=== PATIENT | female | born 1940 | race Caucasian/White ===

== ENCOUNTER 2022-03-21 06:44 | Inpatient (IN) | payer MEDICARE, OTHER ==
[2022-03-21] VITALS (16 sets, daily range): BP systolic 116–173; BP diastolic 52–89
[~2022-03-21] VITALS: Ht 162.6 cm; Wt 62.9 kg
[2022-03-21] MEDS: normal saline 1,000 ML IV SCH ×2 (07:10→21:50)
[2022-03-21] MEDS ORDERED: diphenhydrAMINE 25mg capsule PO PRN (07:10)
[2022-03-21] MEDS ORDERED: ATOR20TA66 PO (07:25)
[2022-03-21] MEDS ORDERED: LISI10TA27 PO (07:25)
[2022-03-21] MEDS ORDERED: LIRA0.6P2 SQ (07:25)
[2022-03-21] MEDS ORDERED: INSU100I25 SQ (07:25)
[2022-03-21] MEDS ORDERED: ASPI-1071 PO (07:26)
[2022-03-21] MEDS ORDERED: PONA45TA2 PO (07:27)
[2022-03-21] MEDS ORDERED: LEVO100T PO (07:27)
[2022-03-21 08:23] LABS: BASOPHILS % (AUTO) 0.7 % (0-1); EOSINOPHILS # (AUTO) 0.1 X10'3 (0-0.9); EOSINOPHILS % (AUTO) 1.8 % (0-6); HEMATOCRIT 42.7 % (35.0-45.0); HEMOGLOBIN 14.1 g/dl (12.0-16.0); LYMPHOCYTES % (AUTO) 15.3 % (21-51); MEAN CORPUSCULAR HEMOGLOBIN 29.6 PG (27.0-31.0); MEAN CORPUSCULAR HGB CONC 33.1 g/dL (33.0-36.5); MEAN CORPUSCULAR VOLUME 89.3 FL (78-98); MEAN PLATELET VOLUME 6.7 FL (7.4-10.4); MONOCYTES # (AUTO) 0.6 X10'3 (0-0.9); MONOCYTES % (AUTO) 8.3 % (2-12); NEUTROPHILS % (AUTO) 73.9 % (42-75); PLATELET COUNT 287 X10'3 (140-440); RED BLOOD COUNT 4.78 X10'6 (4.20-5.60); RED CELL DISTRIBUTION WIDTH 13.6 % (11.5-14.5); WHITE BLOOD COUNT 6.8 X10'3 (4.5-11.0)
[2022-03-21] MEDS ORDERED: verapamil 2.5 mg/ml inj IV ONE (08:27)
[2022-03-21] MEDS ORDERED: midazolam 1 mg/ML 2ml injection ONE ×6 (08:27→12:37)
[2022-03-21] MEDS ORDERED: fentaNYL/PF 50MCG/1 ML 2ML syringe ONE (08:27)
[2022-03-21] MEDS ORDERED: nitroGLYCERIN-Tridil 50MG/D5W 250 ML IV ONE (08:27)
[2022-03-21] MEDS ORDERED: LIDOcaine 1% 30ml preserv. free vial ONE (08:27)
[2022-03-21] MEDS ORDERED: iohexol 350MG/ML 100ml bottle IV ONE ×4 (08:27→11:03)
[2022-03-21] MEDS ORDERED: heparin 1,000unit/ml 10ml vial 10 ML ONE ×2 (08:27→10:12)
[2022-03-21] MEDS ORDERED: LIDOcaine 1% (10mg/ml) 2ml vial ONE (08:27)
[2022-03-21 08:38] LABS: ALBUMIN 3.2 G/DL (3.4-5.0); ANION GAP 7 (8-16); BLOOD UREA NITROGEN 14 MG/DL (7-18); BUN/CREATININE RATIO 17.3 (6.6-38.0); CALCIUM 9.2 MG/DL (8.5-10.1); CHLORIDE 104 MMOL/L (99-107); CREATININE 0.81 MG/DL (0.40-0.90); GLUCOSE 126 MG/DL (70-104); MAGNESIUM 1.6 MG/DL (1.5-2.4); POTASSIUM 4.1 MMOL/L (3.5-5.1); SODIUM 137 MMOL/L (135-145); TOTAL CARBON DIOXIDE 26.2 MMOL/L (24-32); eGFR 68 ML/MIN
[2022-03-21] MEDS ORDERED: protamine sulfate 10mg/ml inj. ONE (10:14)
[2022-03-21] MEDS ORDERED: atropine 0.1mg/ml 10ml syringe ONE (10:38)
[2022-03-21] MEDS ORDERED: phenylephrine 10mg/ml inj. ONE (10:43)
[2022-03-21] MEDS ORDERED: LIDOCAINE IV ONE (11:02)
[2022-03-21] MEDS ORDERED: DEXTROSE IV ONE (11:02)
--- NOTE | 2022-03-21 11:15 | NUR ---
Call placed to pt's son Greg Lo or [phone])to update him on her critical condition. He was made aware that details not yet known by short stay staff, he asked for return call when more information is known. He is currently caregiving for his father who is completely dependent and cannot be left for him to come to the hospital. Call will be made to geotechnical laboratory technician to request md/Rn to update him when they are available and pt is stabilized.
[2022-03-21] MEDS: dexmedetomidin/NS 400mcg/100ml 100 ML IV SCH (12:10)
[2022-03-21] MEDS ORDERED: ticagrelor 90mg tablet ONE (12:34)
[2022-03-21] MEDS ORDERED: POTASSIUM BICARB 20meq eff tab 20 MEQ TABLET.EFF PO PRN (13:15)
[2022-03-21] MEDS ORDERED: potassium Cl 20mEq/100mL bag 100 ML IV PRN (13:15)
[2022-03-21] MEDS ORDERED: magnesium 2GM in 50ml NS 50 ML IV PRN (13:15)
[2022-03-21] MEDS ORDERED: potassium CL 10mEq/100ml bag 100 ML IV PRN (13:15)
[2022-03-21] MEDS ORDERED: magnesium Cl slow-release 64mg tablet PO PRN (13:15)
[2022-03-21] MEDS: normal saline 1000ml 1,000 ML IV SCH ×2 (13:15→23:15)
[2022-03-21] MEDS ORDERED: magnesium 4gm in 100ml NS 100 ML IV PRN (13:15)
[2022-03-21] MEDS ORDERED: heparin 10,000 units/1 ML INJ ONE (13:26)
[2022-03-21 13:29] LABS: ABG BASE EXCESS -5.1 mmol/L (-2.0-2.0); ABG HCO3 18.1 mmol/L (22.0-26.0); ABG OXYGEN SATURATION 98.8 % (94-97); FCOHb 0.3 % (0.0-3.9); FMetHb 0.2 % (0.0-1.5); FO2Hb 98.3 % (94-97); PATIENT TEMPERATURE 35.4; PEEP 5 cm H2O; RESPIRATORY RATE 18 b/min; TIDAL VOLUME 400 mL; TOTAL HEMOGLOBIN 13.9 G/dl (12.0-16.0)
[2022-03-21] MEDS ORDERED: pantoprazole 40mg IV 40 MG in normal saline 100ml IV soln 100 ML IV SCH (13:40)
[2022-03-21] MEDS ORDERED: sevoflurane 250ml liquid IH ONE (13:56)
--- NOTE | 2022-03-21 14:07 | NUR ---
patient to OR
[2022-03-21] MEDS ORDERED: epiNEPHrine 0.1mg/ml 10ml syringe ONE (15:00)
[2022-03-21] MEDS ORDERED: amiodarone 50MG/ML inj IV ONE (15:00)
[2022-03-21] MEDS ORDERED: LIDOcaine 2% (20mg/ml) 5ml vial ONE (15:00)
--- NOTE | 2022-03-21 15:25 | NUR ---
returned from OR, Dr Bhatia at bedside
--- NOTE | 2022-03-21 15:27 | NUR ---
wilbert ozuna placed for temp 35. dressing to right wrist, cdi right hand now pink and warm
[2022-03-21 15:47] LABS: BASOPHILS % (AUTO) 0.2 % (0-1); EOSINOPHILS % (AUTO) 0.2 % (0-6); HEMATOCRIT 41.8 % (35.0-45.0); HEMOGLOBIN 13.8 g/dl (12.0-16.0); LYMPHOCYTES # (AUTO) 0.8 X10'3 (1.1-4.8); LYMPHOCYTES % (AUTO) 6.8 % (21-51); MEAN CORPUSCULAR HEMOGLOBIN 29.2 PG (27.0-31.0); MEAN CORPUSCULAR VOLUME 88.5 FL (78-98); MEAN PLATELET VOLUME 6.9 FL (7.4-10.4); MONOCYTES # (AUTO) 0.7 X10'3 (0-0.9); NEUTROPHILS # (AUTO) 9.7 X10'3 (1.8-7.7); NEUTROPHILS % (AUTO) 86.8 % (42-75); PLATELET COUNT 276 X10'3 (140-440); RED BLOOD COUNT 4.72 X10'6 (4.20-5.60); RED CELL DISTRIBUTION WIDTH 13.5 % (11.5-14.5); WHITE BLOOD COUNT 11.2 X10'3 (4.5-11.0)
[2022-03-21] MEDS ORDERED: rocuronium 10mg/ml inj IV ONE (15:48)
[2022-03-21] MEDS ORDERED: ePHEDrine 50MG/ML INJ. ONE (15:48)
[2022-03-21] MEDS ORDERED: glycopyrrolate 0.2mg/ml inj ONE (15:48)
[2022-03-21 16:01] LABS: ALANINE AMINOTRANSFERASE 85 U/L (12-78); ALBUMIN 2.7 G/DL (3.4-5.0); ALBUMIN/GLOBULIN RATIO 0.8 (1.1-1.5); ALKALINE PHOSPHATASE 87 IU/L (46-116); ANION GAP 12 (8-16); ASPARTATE AMINO TRANSFERASE 92 U/L (10-37); BILIRUBIN,TOTAL 0.5 MG/DL (0.1-1.0); BLOOD UREA NITROGEN 10 MG/DL (7-18); BUN/CREATININE RATIO 16.1 (6.6-38.0); CALCIUM 7.3 MG/DL (8.5-10.1); CHLORIDE 107 MMOL/L (99-107); CREATININE 0.62 MG/DL (0.40-0.90); GLUCOSE 191 MG/DL (70-104); POTASSIUM 3.5 MMOL/L (3.5-5.1); SODIUM 138 MMOL/L (135-145); TOTAL CARBON DIOXIDE 18.7 MMOL/L (24-32); eGFR > 90 ML/MIN
[2022-03-21 16:21] LABS: ISTAT HGB ART 12.9 g/dl (12.0-16.0); ISTAT Hct ART 38 %PCV (35-45); ISTAT O2 SATURATION ARTERIAL 100 % (95-98); ISTAT SOURCE BLNK
[2022-03-21 16:31] LABS: MAGNESIUM 1.5 MG/DL (1.5-2.4)
[2022-03-21] MEDS: amiodarone/D5 360MG/200ML BAG 200 ML IV SCH ×2 (16:54→21:49)
[2022-03-21 17:06] LABS: ABG BASE EXCESS -6.6 mmol/L (-2.0-2.0); ABG HCO3 15.7 mmol/L (22.0-26.0); ABG OXYGEN SATURATION 99.4 % (94-97); ABG PCO2 (T) 22.8 mmHg (32.0-45.0); ABG PO2 (T) 171.1 mmHg (75.0-100.0); FCOHb 0.5 % (0.0-3.9); FMetHb 0.3 % (0.0-1.5); FO2Hb 98.6 % (94-97); PATIENT TEMPERATURE 35.5; PEEP 5 cm H2O; TIDAL VOLUME 527 mL; TOTAL HEMOGLOBIN 14.7 G/dl (12.0-16.0)
--- NOTE | 2022-03-21 18:18 | NUR ---
Patient in room CICU 2010. I have received report from Veronica SHI and had the opportunity to ask questions and assume patient care.
[2022-03-21] MEDS: enoxaparin 30mg/0.3ml syringe SUBCUT SCH (20:00)
[2022-03-21] MEDS: ticagrelor 90mg tablet PO SCH (20:23)
--- NOTE | 2022-03-21 20:32 | NUR ---
MD Cruz called to inquire regarding scheduled 30mg lovenox injection. Order to hold for matiasight received. Will hold lovenox per MD order, will give brilinta as ordered.
--- NOTE | 2022-03-21 22:05 | NUR ---
Problems reprioritized. Patient report given, questions answered & plan of care reviewed with Estela SHI.
--- NOTE | 2022-03-21 22:07 | NUR ---
I have received report and assumed care of pt.
[2022-03-22] VITALS (23 sets, daily range): BP systolic 124–168; BP diastolic 30–70
[2022-03-22] MEDS ORDERED: ibuprofen 200mg tablet PO PRN (00:35)
[2022-03-22] MEDS ORDERED: acetaminophen 325mg tablet PO PRN (00:35)
[2022-03-22] MEDS: amiodarone/D5 360MG/200ML BAG 200 ML IV SCH ×4 (01:43→21:00)
[2022-03-22 02:35] LABS: BASOPHILS % (AUTO) 0.2 % (0-1); EOSINOPHILS % (AUTO) 0 % (0-6); HEMATOCRIT 35.3 % (35.0-45.0); HEMOGLOBIN 11.8 g/dl (12.0-16.0); LYMPHOCYTES # (AUTO) 0.9 X10'3 (1.1-4.8); LYMPHOCYTES % (AUTO) 9.1 % (21-51); MEAN CORPUSCULAR HEMOGLOBIN 29.6 PG (27.0-31.0); MEAN CORPUSCULAR HGB CONC 33.3 g/dL (33.0-36.5); MEAN CORPUSCULAR VOLUME 88.8 FL (78-98); MONOCYTES # (AUTO) 0.7 X10'3 (0-0.9); MONOCYTES % (AUTO) 7.1 % (2-12); NEUTROPHILS # (AUTO) 8.4 X10'3 (1.8-7.7); NEUTROPHILS % (AUTO) 83.6 % (42-75); PLATELET COUNT 260 X10'3 (140-440); RED BLOOD COUNT 3.98 X10'6 (4.20-5.60); WHITE BLOOD COUNT 10.1 X10'3 (4.5-11.0)
[2022-03-22 02:49] LABS: ALANINE AMINOTRANSFERASE 62 U/L (12-78); ALBUMIN 2.5 G/DL (3.4-5.0); ALBUMIN/GLOBULIN RATIO 0.9 (1.1-1.5); ALKALINE PHOSPHATASE 71 IU/L (46-116); ANION GAP 15 (8-16); ASPARTATE AMINO TRANSFERASE 63 U/L (10-37); BILIRUBIN,TOTAL 0.2 MG/DL (0.1-1.0); BLOOD UREA NITROGEN 11 MG/DL (7-18); BUN/CREATININE RATIO 15.1 (6.6-38.0); CALCIUM 7.3 MG/DL (8.5-10.1); CHLORIDE 106 MMOL/L (99-107); CREATININE 0.73 MG/DL (0.40-0.90); GLUCOSE 156 MG/DL (70-104); MAGNESIUM 1.2 MG/DL (1.5-2.4); PHOSPHORUS 3.2 MG/DL (2.3-4.5); POTASSIUM 3.3 MMOL/L (3.5-5.1); SODIUM 139 MMOL/L (135-145); TOTAL CARBON DIOXIDE 18.3 MMOL/L (24-32); TOTAL PROTEIN 5.4 G/DL (6.4-8.2); eGFR 77 ML/MIN
[2022-03-22] MEDS: normal saline 1,000 ML IV SCH (03:10)
[2022-03-22] MEDS: dexmedetomidin/NS 400mcg/100ml 100 ML IV SCH (04:04)
--- NOTE | 2022-03-22 06:20 | NUR ---
Patient in room CICU 2010. I have received report from YURIDIA Flores and had the opportunity to ask questions and assume patient care.
[2022-03-22] MEDS: K and/or MAG REPLACEMENT MC SCH (07:58)
[2022-03-22] MEDS: enoxaparin 30mg/0.3ml syringe SUBCUT SCH ×2 (07:58→22:10)
[2022-03-22] MEDS: normal saline 1000ml 1,000 ML IV SCH ×2 (08:08→19:15)
[2022-03-22] MEDS: ticagrelor 90mg tablet PO SCH ×2 (08:13→22:10)
[2022-03-22] MEDS: aspirin 81mg tab.chew PO SCH (08:13)
[2022-03-22] MEDS: POTASSIUM BICARB 20meq eff tab 20 MEQ TABLET.EFF PO PRN ×3 (08:13→16:54)
[2022-03-22] MEDS ORDERED: LIDOcaine 1% 30ml preserv. free vial SQ STA (08:27)
--- NOTE | 2022-03-22 09:00 | NUR ---
Dr. Barajas bedside with, Adrienne Rudd DIESEL DRAGLINE OPERATOR, and ammunition assembly laborer RN to pull the patient's sheath.
--- NOTE | 2022-03-22 11:52 | NUR ---
Pt intubated s/p v.fib arrest following cardiac cath yesterday s/p extubation last night now advanced to heart healthy diet this AM per EMR. Pending transfer out of CICU today per public housing manager at rounds. Noted hx DM w/ no A1C hx in EMR; pending A1C this admit. Will monitor for initial PO trends, A1C results, and nutrition intervention needs this admit. Addendum: 03/22/22 at [address] Amended: Links added.
[2022-03-22] MEDS: pantoprazole 40mg IV 40 MG in normal saline 100ml IV soln 100 ML IV SCH (12:07)
[2022-03-22 12:35] LABS: HEMOGLOBIN A1C 6.8 % (4.5-6.2)
--- NOTE | 2022-03-22 18:17 | NUR ---
Problems reprioritized. Patient report given, questions answered & plan of care reviewed with YURIDIA Menjivar.
--- NOTE | 2022-03-22 18:20 | NUR ---
I have received report and assumed care of pt. PTs family at bedside denies needs at this time, No hematoma noted at the rt sheath sight.
--- NOTE | 2022-03-22 20:25 | NUR ---
Hs cares complete, pt tolerated well. pt denies needs at this time, frequent repositioning to maintain skin integrity. Thurman catheter in place to gravity.
[2022-03-23] VITALS (11 sets, daily range): BP systolic 153–175; BP diastolic 62–74
[2022-03-23] MEDS: amiodarone/D5 360MG/200ML BAG 200 ML IV SCH (01:59)
[2022-03-23] MEDS: normal saline 1000ml 1,000 ML IV SCH (05:15)
[2022-03-23 06:18] LABS: BASOPHILS % (AUTO) 0.3 % (0-1); EOSINOPHILS % (AUTO) 0.3 % (0-6); HEMATOCRIT 40.2 % (35.0-45.0); HEMOGLOBIN 13.3 g/dl (12.0-16.0); LYMPHOCYTES # (AUTO) 0.9 X10'3 (1.1-4.8); LYMPHOCYTES % (AUTO) 9.4 % (21-51); MEAN CORPUSCULAR HEMOGLOBIN 29.8 PG (27.0-31.0); MEAN CORPUSCULAR HGB CONC 33.2 g/dL (33.0-36.5); MEAN CORPUSCULAR VOLUME 89.8 FL (78-98); MEAN PLATELET VOLUME 7.1 FL (7.4-10.4); MONOCYTES # (AUTO) 0.8 X10'3 (0-0.9); MONOCYTES % (AUTO) 8.1 % (2-12); NEUTROPHILS # (AUTO) 7.9 X10'3 (1.8-7.7); NEUTROPHILS % (AUTO) 81.9 % (42-75); PLATELET COUNT 231 X10'3 (140-440); RED BLOOD COUNT 4.48 X10'6 (4.20-5.60); RED CELL DISTRIBUTION WIDTH 14.3 % (11.5-14.5); WHITE BLOOD COUNT 9.7 X10'3 (4.5-11.0)
--- NOTE | 2022-03-23 06:30 | NUR ---
Patient in room CICU 2010. I have received report from YURIDIA Palmer and had the opportunity to ask questions and assume patient care.
[2022-03-23 06:43] LABS: ALANINE AMINOTRANSFERASE 51 U/L (12-78); ALBUMIN 2.6 G/DL (3.4-5.0); ALBUMIN/GLOBULIN RATIO 0.7 (1.1-1.5); ALKALINE PHOSPHATASE 90 IU/L (46-116); ANION GAP 15 (8-16); ASPARTATE AMINO TRANSFERASE 41 U/L (10-37); BILIRUBIN,TOTAL 0.4 MG/DL (0.1-1.0); BLOOD UREA NITROGEN 6 MG/DL (7-18); BUN/CREATININE RATIO 7.8 (6.6-38.0); CHLORIDE 106 MMOL/L (99-107); CREATININE 0.77 MG/DL (0.40-0.90); GLUCOSE 157 MG/DL (70-104); MAGNESIUM 1.4 MG/DL (1.5-2.4); POTASSIUM 3.6 MMOL/L (3.5-5.1); SODIUM 140 MMOL/L (135-145); TOTAL CARBON DIOXIDE 19.1 MMOL/L (24-32); TOTAL PROTEIN 6.1 G/DL (6.4-8.2); eGFR 72 ML/MIN
[2022-03-23] MEDS: ticagrelor 90mg tablet PO SCH (07:40)
[2022-03-23] MEDS: enoxaparin 30mg/0.3ml syringe SUBCUT SCH (07:42)
[2022-03-23] MEDS: pantoprazole 40mg IV 40 MG in normal saline 100ml IV soln 100 ML IV SCH (07:46)
[2022-03-23] MEDS: aspirin 81mg tab.chew PO SCH (07:50)
--- NOTE | 2022-03-23 08:10 | NUR ---
Adrienne Rudd CIVIL CAD DESIGNER rounded on pt. She was concerned about edema and warmth in pt's left forearm. She ordered IV fluids/ meds held.
[2022-03-23] MEDS ORDERED: vancomycin inj 1,000 MG in normal saline 250ml IV soln 250 ML IV ONE (09:10)
[2022-03-23] MEDS ORDERED: amiodarone 200mg tablet PO SCH (09:10)
[2022-03-23] MEDS ORDERED: TICA90TA PO (09:13)
[2022-03-23] MEDS ORDERED: AMIO200T61 PO (09:13)
[2022-03-23] MEDS ORDERED: CLIN-97 PO (09:13)
[2022-03-23] MEDS ORDERED: PANT20TA2 PO (09:13)
--- NOTE | 2022-03-23 09:20 | NUR ---
Dr Baugh rounded. Discussed IV medcations. He is aware that pt has had right mastectomy and cannot have IV placed in right arm. Holding IV medications pending doppler study of left arm.
--- NOTE | 2022-03-23 10:01 | NUR ---
Report called to YURIDIA Hu on PCU.
--- NOTE | 2022-03-23 10:10 | NUR ---
Pt transferred to room 9777K
[2022-03-23] MEDS ORDERED: furosemide 40mg/4ml inj IV ONE (10:15)
[2022-03-23] MEDS: K and/or MAG REPLACEMENT MC SCH (11:34)
[2022-03-23] MEDS ORDERED: furosemide 20MG tablet PO ONE (11:55)
--- NOTE | 2022-03-23 11:56 | NUR ---
F/u 03/23: Pt A1C results 6.8% per EMR; appropriate. Addendum: 03/23/22 at [address] Amended: Links added.
[2022-03-23] MEDS ORDERED: RIVA20TA PO (11:58)
[2022-03-23] MEDS ORDERED: rivaroxaban 20mg tablet PO SCH (12:00)
--- NOTE | 2022-03-23 13:38 | NUR ---
Thurman discontinued, no complication, waiting for pt to void
--- NOTE | 2022-03-23 15:39 | NUR ---
Prescriptions transferred to [facility] on [address] , in [place], so family member does not have to drive to [place] and back. Pharmacist at [facility] estimated prescriptions will be ready to pecan picker at approx 1630. Family member will pick them up then.
--- NOTE | 2022-03-23 17:45 | NUR ---
Pt received discharge education, pt son picked up chivo at pharmacy and presented to this RN. discussion of new medications, medication schedule, upcoming appointments. All questions answered.
[2022-03-24] MEDS ORDERED: pantoprazole 40mg Tablet.DR PO SCH (07:30)
--- NOTE | 2022-03-24 11:31 | NUR ---
Case Management DC follow up: Spoke with Patient via telephone.S/P: Patient reports:. Denies : Acute/continuous CP, emergent SOB, resp distress, orthopnea, dyspnea , N/V, vertigo, syncope episodes, and/or orthostatic hypotension; however, verbalizes she feels very fatigued.Denies: FLORENTINO, blurry vision, s/s of stroke/BE-FAST, dysphagia, dysuria, retention,abdominal pain/distention, hematochezia, melena, unexplained bruising, bleeding, fever, chills.Verbalizes understanding of new Rx: why prescribed; continues/resumes current Rx as ordered.Verbalizes her left upper arm swelling and redness have decreased. Verbalizes her right wrist dressing is clean dry and intact; denies any strikethrough drainage and/or odor.Verbalizes history of neuropathy in her hands ; however, denies any s/s of poor circulation, numbness,and/or tingling at fingers.Verbalizes her right groin cath site looks fine; denies redness, swelling ,warmth to touch and/or drainage at site. Verbalizes understanding of s/s that warrant a -/ER visit for further evaluation.Apprised Patient I called [facility] and they will be contacting her soon.Patient verbalizes she has appointment with Dr. Cheatham 03/28/22, 03/30/22, and plans to call Dr. Barajas to schedule follow up appointment.Verbalizes the nursing staff were great! Needs met, questions/concerns addressed at DC.No further questions/concerns regarding recent hospital stay and/or DC status at this time.
== END 2022-03-23 17:45 | disposition home health service (06) | DRG 246 ==
LOC: SSTAY O 06:44 → CICU 2S 12:14 → PCU 3S 03-23 10:27
PROVIDERS: ADMIT Internal Medicine Cardiovascular Disease; ATTEND Internal Medicine Cardiovascular Disease
PROC: 027135Z Dilation of Coronary Artery, Two Arteries with Two Drug-eluting Intraluminal Devices, Percutaneous Approach (ICD-10-PCS; 2022-03-21)
PROC: B2111ZZ Fluoroscopy of Multiple Coronary Arteries using Low Osmolar Contrast (ICD-10-PCS; 2022-03-21)
PROC: B2151ZZ Fluoroscopy of Left Heart using Low Osmolar Contrast (ICD-10-PCS; 2022-03-21)
PROC: 5A12012 Performance of Cardiac Output, Single, Manual (ICD-10-PCS; 2022-03-21)
PROC: 5A2204Z Restoration of Cardiac Rhythm, Single (ICD-10-PCS; 2022-03-21)
PROC: 5A1935Z Respiratory Ventilation, Less than 24 Consecutive Hours (ICD-10-PCS; 2022-03-21)
PROC: 0BH17EZ Insertion of Endotracheal Airway into Trachea, Via Natural or Artificial Opening (ICD-10-PCS; 2022-03-21)
PROC: 03LB0ZZ Occlusion of Right Radial Artery, Open Approach (ICD-10-PCS; 2022-03-21)
PROC: 03CB0ZZ Extirpation of Matter from Right Radial Artery, Open Approach (ICD-10-PCS; 2022-03-21)
PROC: 4A023N7 Measurement of Cardiac Sampling and Pressure, Left Heart, Percutaneous Approach (ICD-10-PCS; principal; 2022-03-21 13:56)
DX: I25.10 Atherosclerotic heart disease of native coronary artery without angina pectoris (principal); I46.2 Cardiac arrest due to underlying cardiac condition; I49.01 Ventricular fibrillation; I82.612 Acute embolism and thrombosis of superficial veins of left upper extremity; E03.9 Hypothyroidism, unspecified; E11.9 Type 2 diabetes mellitus without complications; E78.5 Hyperlipidemia, unspecified; E87.6 Hypokalemia; I10 Essential (primary) hypertension; M79.5 Residual foreign body in soft tissue; Z79.01 Long term (current) use of anticoagulants; Z79.02 Long term (current) use of antithrombotics/antiplatelets; Z79.4 Long term (current) use of insulin; Z79.890 Hormone replacement therapy; Z83.3 Family history of diabetes mellitus; Z85.3 Personal history of malignant neoplasm of breast; Z87.891 Personal history of nicotine dependence; Z90.11 Acquired absence of right breast and nipple; Z79.84 Long term (current) use of oral hypoglycemic drugs; Z88.0 Allergy status to penicillin; Z79.899 Other long term (current) drug therapy; Z79.82 Long term (current) use of aspirin; Z82.49 Family history of ischemic heart disease and other diseases of the circulatory system; Z85.6 Personal history of leukemia
CPT/HCPCS: 92950; 93458; C9600; C9601; 36415; 36600; 71045; 73100; 80048; 80053; 82803; 82948; 83036; 83735; 84100; 85014; 85018; 85025; 85347; 85610; 88300; 93005; 93971; 94002; 94760; 99152; 99153; A4314; A4615; A4618; A6213; A6258; A6446; A6449; A7000; C1725; C1751; C1760; C1769; C1874; C1887; C1894; C9113; G0378; J0171; J0282; J0461; J1644; J1650; J2001; J2250; J2370; J2720; J3010; J3490; J7030; J7040; Q9967

== ENCOUNTER 2023-07-24 09:30 | Day surgery (SDC) | payer MEDICARE, OTHER ==
[~2023-07-24] VITALS: Ht 162.6 cm; Wt 57.7 kg
[2023-07-24] VITALS (12 sets, daily range): BP systolic 103–141; BP diastolic 50–90; PULSE 63–83; RESP 8–21; TEMP 97.7; O2SAT 92–100
[~2023-07-24 09:30] MED LIST: ATOR20TA66 PO; CLIN-97 PO; INSU100I27 SQ; LEVO100T PO; LIRA0.6P2 SQ; LISI10TA27 PO; PANT20TA2 PO; PONA45TA2 PO; RIVA20TA PO; TICA90TA PO
[2023-07-24] MEDS ORDERED: POTA-206 PO (10:06)
[2023-07-24] MEDS ORDERED: MULT-1085 PO (10:06)
[2023-07-24] MEDS ORDERED: CHOL1LIQ (10:06)
[2023-07-24] MEDS ORDERED: CLOP75TA34 PO (10:06)
[2023-07-24] MEDS ORDERED: FURO20TA4 PO (10:06)
[2023-07-24] MEDS: normal saline 1,000 ML IV SCH (10:40)
[2023-07-24] MEDS: diphenhydrAMINE 25mg capsule PO PRN (10:40)
[2023-07-24] MEDS: sodium bicarbonate 1meq/ml syr 150 ML in dextrose 5%-water 1,000 ML IV SCH (10:40)
[2023-07-24 10:52] LABS: BASOPHILS % (AUTO) 0.7 % (0-1); EOSINOPHILS # (AUTO) 0.1 X10'3 (0-0.9); EOSINOPHILS % (AUTO) 1.6 % (0-6); HEMATOCRIT 47.5 % (35.0-45.0); HEMOGLOBIN 15.9 g/dl (12.0-16.0); LYMPHOCYTES % (AUTO) 18.2 % (21-51); MEAN CORPUSCULAR HEMOGLOBIN 29.9 PG (27.0-31.0); MEAN CORPUSCULAR HGB CONC 33.5 g/dL (33.0-36.5); MEAN CORPUSCULAR VOLUME 89.1 FL (78-98); MEAN PLATELET VOLUME 7.3 FL (7.4-10.4); MONOCYTES # (AUTO) 0.3 X10'3 (0-0.9); MONOCYTES % (AUTO) 5.5 % (2-12); NEUTROPHILS # (AUTO) 3.9 X10'3 (1.8-7.7); PLATELET COUNT 287 X10'3 (140-440); RED BLOOD COUNT 5.33 X10'6 (4.20-5.60); RED CELL DISTRIBUTION WIDTH 14.2 % (11.5-14.5); WHITE BLOOD COUNT 5.3 X10'3 (4.5-11.0)
[2023-07-24] MEDS ORDERED: midazolam 1 mg/ML 2ml injection ONE (11:02)
[2023-07-24] MEDS ORDERED: iohexol 350MG/ML 100ml bottle IV ONE (11:02)
[2023-07-24] MEDS ORDERED: fentaNYL/PF 50MCG/1 ML 2ML syringe ONE (11:02)
[2023-07-24] MEDS ORDERED: LIDOcaine 1% 30ml preserv. free vial ONE (11:02)
[2023-07-24] MEDS ORDERED: heparin 1,000unit/ml 10ml vial 10 ML ONE (11:02)
[2023-07-24] MEDS ORDERED: iohexol 350 MG/ML 50ML vial IV ONE (11:03)
[2023-07-24 11:07] LABS: PROTHROMBIN TIME 10.4 SECONDS (9.0-12.0)
[2023-07-24 11:13] LABS: ANION GAP 16 (8-16); BLOOD UREA NITROGEN 11 MG/DL (7-18); BUN/CREATININE RATIO 11.8 (10.0-20.0); CALCIUM 9.3 MG/DL (8.5-10.1); CHLORIDE 102 MMOL/L (99-107); CREATININE 0.93 MG/DL (0.40-0.90); GLUCOSE 137 MG/DL (70-104); MAGNESIUM 1.9 MG/DL (1.5-2.4); POTASSIUM 4.3 MMOL/L (3.5-5.1); SODIUM 140 MMOL/L (135-145); eCRCL 41 ML/MIN; eGFR 58 ML/MIN
[2023-07-24] MEDS ORDERED: RIVA20TA PO (11:16)
[2023-07-24] MEDS ORDERED: HYDROcodone/acetaminophen 5mg/325mg tablet PO PRN (13:45)
[2023-07-24] MEDS ORDERED: nitroGLYCERIN 0.4mg SUBLingual tab SL PRN (13:45)
[2023-07-24] MEDS ORDERED: HYDROcodone/acetaminophen 10/325mg tab PO PRN (13:45)
== END 2023-07-24 16:00 | disposition home or self-care (01) ==
LOC: SSTAY O 09:30
PROVIDERS: ATTEND Internal Medicine Cardiovascular Disease
DX: I35.0 Nonrheumatic aortic (valve) stenosis (principal); I44.7 Left bundle-branch block, unspecified; I25.118 Atherosclerotic heart disease of native coronary artery with other forms of angina pectoris; I10 Essential (primary) hypertension; E11.9 Type 2 diabetes mellitus without complications; E78.5 Hyperlipidemia, unspecified; E03.9 Hypothyroidism, unspecified; J44.9 Chronic obstructive pulmonary disease, unspecified; I48.0 Paroxysmal atrial fibrillation; Z85.3 Personal history of malignant neoplasm of breast; Z87.891 Personal history of nicotine dependence; Z79.890 Hormone replacement therapy; Z79.899 Other long term (current) drug therapy; Z90.11 Acquired absence of right breast and nipple; Z90.710 Acquired absence of both cervix and uterus; Z95.5 Presence of coronary angioplasty implant and graft; Z98.890 Other specified postprocedural states; Z88.0 Allergy status to penicillin; Z82.49 Family history of ischemic heart disease and other diseases of the circulatory system; Z83.3 Family history of diabetes mellitus; Z80.42 Family history of malignant neoplasm of prostate; Z82.5 Family history of asthma and other chronic lower respiratory diseases; Z83.42 Family history of familial hypercholesterolemia
CPT/HCPCS: 36415; 80048; 82948; 83735; 85025; 85610; 93005; 93460; 99152; 99153; J1644; J2250; J3010; J3490; J7030; J7070; Q0163; Q9967; A6258; C1725; C1751; C1760; C1769; C1894

== ENCOUNTER 2023-09-04 09:46 | Outpatient (CLI) | payer MEDICARE, OTHER ==
[~2023-09-04 09:46] MED LIST changes: +CHOL1LIQ; -CLIN-97 PO; +CLOP75TA34 PO; +FURO20TA4 PO; +IODIXANOL 320 MG/ML INFUS..BTL 100ML IV ONE; -LEVO100T PO; +MULT-1085 PO; -PANT20TA2 PO; +POTA-206 PO; -TICA90TA PO
[2023-09-04 10:57] LABS: BASOPHILS % (AUTO) 0.5 % (0-1); EOSINOPHILS # (AUTO) 0.1 X10'3 (0-0.9); HEMOGLOBIN 14.1 g/dl (12.0-16.0); LYMPHOCYTES # (AUTO) 0.7 X10'3 (1.1-4.8); LYMPHOCYTES % (AUTO) 12.2 % (21-51); MEAN CORPUSCULAR HEMOGLOBIN 29.1 PG (27.0-31.0); MEAN CORPUSCULAR HGB CONC 32.8 g/dL (33.0-36.5); MEAN CORPUSCULAR VOLUME 88.7 FL (78-98); MEAN PLATELET VOLUME 7.8 FL (7.4-10.4); MONOCYTES # (AUTO) 0.3 X10'3 (0-0.9); MONOCYTES % (AUTO) 5.5 % (2-12); NEUTROPHILS # (AUTO) 4.7 X10'3 (1.8-7.7); NEUTROPHILS % (AUTO) 80.8 % (42-75); PLATELET COUNT 327 X10'3 (140-440); RED BLOOD COUNT 4.85 X10'6 (4.20-5.60); RED CELL DISTRIBUTION WIDTH 15.5 % (11.5-14.5); WHITE BLOOD COUNT 5.8 X10'3 (4.5-11.0)
[2023-09-04 11:14] LABS: APTT 27 SECONDS (22-32); INR 1.1 INR; PROTHROMBIN TIME 11.4 SECONDS (9.0-12.0)
[2023-09-04 11:29] LABS: ALANINE AMINOTRANSFERASE 15 U/L (12-78); ALBUMIN 2.8 G/DL (3.4-5.0); ALBUMIN/GLOBULIN RATIO 0.6 (1.1-1.5); ALKALINE PHOSPHATASE 145 IU/L (46-116); ANION GAP 12 (8-16); ASPARTATE AMINO TRANSFERASE 13 U/L (10-37); BILIRUBIN,TOTAL 0.6 MG/DL (0.1-1.0); BLOOD UREA NITROGEN 18 MG/DL (7-18); CHLORIDE 102 MMOL/L (99-107); GLUCOSE 261 MG/DL (70-104); POTASSIUM 3.7 MMOL/L (3.5-5.1); PRO BRAIN NATRIURETIC PEPTIDE 17637 PG/ML (0-450); SODIUM 136 MMOL/L (135-145); TOTAL CARBON DIOXIDE 21.6 MMOL/L (24-32); TOTAL PROTEIN 7.2 G/DL (6.4-8.2); eGFR 43 ML/MIN
[2023-09-19] MEDS ORDERED: UBID100C16 PO (10:46)
[2023-09-19] MEDS ORDERED: LEVOTHYROXINE PO (10:46)
== END 2023-09-04 23:59 | disposition home or self-care (01) ==
LOC: VAS 09:46
PROVIDERS: ATTEND Internal Medicine Cardiovascular Disease
DX: I08.3 Combined rheumatic disorders of mitral, aortic and tricuspid valves (principal); I65.23 Occlusion and stenosis of bilateral carotid arteries; R06.02 Shortness of breath; I70.0 Atherosclerosis of aorta; J90 Pleural effusion, not elsewhere classified; M47.817 Spondylosis without myelopathy or radiculopathy, lumbosacral region; J98.11 Atelectasis; R91.1 Solitary pulmonary nodule
CPT/HCPCS: 36415; 71046; 80053; 83880; 85025; 85610; 85730; 93308; 93880; Q9967; 71275; 74174; 75572

== ENCOUNTER 2023-09-11 11:07 | Outpatient (CLI) | payer MEDICARE, OTHER ==
[2023-09-19] MEDS ORDERED: UBID100C16 PO (10:46)
[2023-09-19] MEDS ORDERED: LEVOTHYROXINE PO (10:46)
== END 2023-09-11 23:59 | disposition home or self-care (01) ==
LOC: RAD 11:07
PROVIDERS: ATTEND Internal Medicine Cardiovascular Disease
DX: I51.7 Cardiomegaly (principal); J98.11 Atelectasis; R91.8 Other nonspecific abnormal finding of lung field; I35.0 Nonrheumatic aortic (valve) stenosis; R06.02 Shortness of breath; I65.29 Occlusion and stenosis of unspecified carotid artery; M47.819 Spondylosis without myelopathy or radiculopathy, site unspecified
CPT/HCPCS: 71275; 74174; 75572; J3490; Q9967